=== PATIENT | male | born 1985 ===

== ENCOUNTER 2020-07-27 06:39 | Day surgery (SDC) | payer OTHER ==
[~2020-07-27] VITALS: Ht 177.8 cm; Wt 99.8 kg
[2020-07-27 07:11] LABS: BASOPHILS 0.4 % (0-2); EOSINOPHILS 5.1 % (0-7); HEMATOCRIT 45.7 % (42.0-54.0); HEMOGLOBIN 15.4 g/dL (13.5-17.5); IMMATURE GRANULOCYTES 0.1 % (0-5); LYMPHOCYTE ABS# 3.35 10x3/uL (1.32-3.57); LYMPHOCYTES 43.5 % (15-50); MCH 30.3 pg (26.0-34.0); MCHC 33.7 g/dL (31.0-37.0); MCV 89.8 fL (80.0-100.0); MEAN PLATELET VOLUME 9.7 fL (7.4-10.4); MONOCYTES 10.4 % (2-11); NEUTROPHIL ABS# 3.13 10x3/uL (1.78-5.38); NEUTROPHILS 40.5 % (40-80); PLATELET COUNT 219 10x3/uL (130-400); RBC 5.09 10x6/uL (4.20-6.10); RDW 12.5 % (11.5-14.5); WBC 7.7 10x3/uL (4.8-10.8)
[2020-07-27 07:12] LABS: CALCIUM 8.9 mg/dL (8.5-10.1); CARBON DIOXIDE 30.7 mmol/L (21.0-32.0); CREATININE - SERUM 1.2 mg/dL (0.6-1.3); POTASSIUM - SERUM 3.7 mmol/L (3.5-5.1)
[2020-07-27] MEDS ORDERED: IBUPROFEN400 MG PO (07:13)
[2020-07-27 07:31] VITALS: BP 135/83; Ht 177.8 cm; Wt 99.8 kg
--- NOTE | 2020-07-27 13:39 | HP ---
PATIENT: LONNIE COUCH MEDICAL RECORD: [id number] ACCOUNT: [id number] LOCATION:[facility] : 89 ADMISSION DATE: 07/27/20 PCP: No PCP HISTORY AND PHYSICAL EXAMINATION HISTORY OF PRESENT ILLNESS: The patient has a right inguinal hernia and likely has a right hydrocele as well. He is here for right inguinal hernia repair and right hydrocelectomy. The risks, possible complication, alternatives to the procedure were explained to the patient. He elects to proceed. The discussion specifically included, but was not limited to, bleeding requiring an emergency reoperation, infection, recurrence of the hydrocele, chronic pain. I specifically discussed with him that we would have to use mesh in his repair or else the chance of the hernia recurring would be about 100%. He understands this. PAST MEDICAL AND SURGICAL HISTORY: Negative. MEDICINES AT THE JAIL: Motrin. ALLERGIES: No known drug allergies. REVIEW OF SYSTEMS: Negative for coronary artery disease or hypertension. Negative for CVA or seizures. PHYSICAL EXAMINATION: GENERAL: The patient does not appear acutely ill. He does not appear chronically ill. VITAL SIGNS: Reviewed. EARS: External ears appear normal. EYES: Extraocular movements are intact. NECK: Trachea midline. CHEST: No intercostal retractions. PULMONARY: Nonlabored. No stridor. IMPRESSION: Large right inguinal hernia with possible hydrocelectomy. TRANSINT:[id number] Voice Confirmation ID: [id number] DOCUMENT ID: [id number] cc: Dr. Ramez TESFAYE, DAGMAR GALINDO at 1339 CC: [id number] DICTATION DATE: 07/27/20 1028 ENGINEER TECHNICAL STAFF: 07/27/20 1108 [facility] [address] [id number]
--- NOTE | 2020-07-27 15:00 | NUR ---
PATIENT AND GUARD REPORT THAT PATIENT HAS WALKED TO BATHROOM AND URINATED LARGE AMOUNT IN TOILET. LEFT HAND PIV DC'D WITH TIP INTACT. DISCHARGE INSTRUCTIONS REVIEWED WITH PATIENT, PATIENT DRESSED IN ADC CLOTHING. DISCHARGED VIA WHEELCHAIR TO PRIVATE VEHICLE WITH GUARDS
--- NOTE | 2020-07-30 11:56 | OP ---
PATIENT NAME: LONNIE COUCH MEDICAL RECORD: [id number] :89 LOCATION:D[facility] ADMISSION DATE: SURGEON: DAGMAR TESFAYE MD DATE OF OPERATION: 07/27/2020 PREOPERATIVE DIAGNOSIS: Large symptomatic right inguinal hernia with possible hydrocele. POSTOPERATIVE DIAGNOSIS: Large symptomatic right indirect inguinal hernia without hydrocele. PROCEDURE: Open repair of large symptomatic right indirect inguinal hernia, nonincarcerated with bilayer preperitoneal polypropylene mesh. SURGEON: Dagmar Tesfaye MD SAND CLEANING MACHINE OPERATOR: Wilner Cage, third year medical student BLOOD LOSS: Minimal. ANESTHESIA: General. The risks, possible complications, alternatives to the procedure were explained to the patient. He elects to proceed. The discussion specifically included, but was not limited to, bleeding requiring emergency reoperation, infection, intestinal injury and chronic pain. I specifically discussed with him that mesh would have to be used in the hernia repair. DESCRIPTION OF PROCEDURE: The patient was conveyed to the operating room electively on 07/27/2020. General anesthesia was induced by the anesthesia staff. The abdomen and genitals were sterilely prepped and draped. A transverse incision was accomplished in the right groin. Sharp dissection was carried down through skin and subcutaneous tissue as well as Rogelio fascia. I then sharply cleaned overlying connective tissue from the underlying external oblique aponeurosis. The external oblique aponeurosis was incised along the direction of its fibers. I bluntly dissected down through the internal oblique and transversus abdominis muscles. A preperitoneal pocket was fashioned bluntly. I was able to completely reduce a right inguinal hernia sac. I then entered the indirect sac sharply. There was no sliding component. No incarcerated component. I ligated the sac highly with a pursestring 3-0 Vicryl suture. I then transected the sac distal to this. I then cut 2 ovals out of a polypropylene mesh. The 2 ovals were sutured together one on top of the other with a running #1 Surgidac. I then placed the mesh in the preperitoneal space. Once I was satisfied with placement of the mesh, I allowed the internal oblique and transversus abdominis muscles to come together over the mesh. These 2 muscles were sutured together with multiple interrupted horizontal mattress 0 Surgidacs. I incorporated a portion of the mesh with these sutures. The external oblique aponeurosis was closed with running #1 Vicryl suture. Rogelio's fascia was approximated with interrupted 3-0 Vicryl. The subdermis was approximated with interrupted 3-0 Vicryl. The skin was approximated with a running intracuticular 4-0 Vicryl. Benzoin and Steri-Strips were applied. The patient was then extubated and conveyed to post-anesthesia care unit where OPERATIVE REPORT [id number] LONNIE COUCH he was in stable condition. TRANSINT:[id number] Voice Confirmation ID: [id number] DOCUMENT ID: [id number] DAGMAR TESFAYE MD at 1156 CC: ALFREDO FULLER MD [id number] DICTATION DATE: 07/29/20722 CENTRIFUGAL WAX MOLDER: 07/29/20 1342 [facility] 07/27/[id number] [place] [address]
== END 2020-07-27 15:00 | disposition home or self-care (01) ==
LOC: D.OPS 06:39
PROVIDERS: ATTEND Surgery
DX: K40.90 Unilateral inguinal hernia, without obstruction or gangrene, not specified as recurrent (principal)